=== PATIENT | male | born 1985 | race Hispanic/Latino ===

== ENCOUNTER 2022-07-28 16:13 | Emergency (ER) | payer SELFPAY ==
[~2022-07-28 16:13] MED LIST: Iopamidol-370 76% 500 ML MDV (1 ML CHARGE) ONE
[2022-07-28] MEDS ORDERED: Ondansetron PF 4 MG/2 ML Vial ONE (16:20)
[2022-07-28] MEDS ORDERED: Morphine 4 MG/ML VIAL ONE (16:20)
[2022-07-28 16:37] LABS: #Basophils 0.1 thou/uL (0.0-0.2); #Eosinphils 0.4 thou/uL (0.0-0.7); #Lymphocytes 3.9 thou/uL (1.20-3.40); #Neutrophils 6.8 thou/uL (1.40-6.50); %Basophils 0.8 % (0.0-1.0); %Eosinophils 3.6 % (0.0-10.0); %Lymphocytes 32.2 % (21.0-51.0); %Monocytes 7.9 % (0.0-10.0); %Neutrophils 55.5 % (42.0-75.0); Hemoglobin 15.4 g/dL (14.0-18.0); Mean Corpuscular HGB CONC 34.2 g/dL (32.0-36.0); Mean Corpuscular Hemoglobin 30.1 pg (27.0-31.0); Mean Platelet Volume 8.9 fL (7.4-10.4); Platelet Count 252 10x3/uL (130-400); RBC Distribution Width 12.3 % (11.5-14.5); Red Blood Cell (RBC) Count 5.12 mill/uL (4.70-6.10); White Blood Cell (WBC) Count 12.2 10x3/uL (4.8-10.8)
[2022-07-28 16:49] LABS: INR-International Normal Ratio 0.9; Prothrombin Time 12.5 sec (12.0-14.7)
[2022-07-28 16:50] LABS: PTT 34.2 sec (22.9-36.1)
[2022-07-28 17:56] LABS: Albumin 3.8 g/dL (3.5-5.0)
[2022-07-28 17:57] LABS: Chloride 107 mmol/L (98-107); Potassium 3.6 mmol/L (3.5-5.1); Sodium 136 mmol/L (136-145)
[2022-07-28 17:58] LABS: Calcium 8.3 mg/dL (7.8-10.44); Glucose 79 mg/dL (70-105)
[2022-07-28 17:59] LABS: Globulin 2.4 g/dL (2.4-3.5); Protein, Total 6.2 g/dL (6.0-8.3)
[2022-07-28 18:00] LABS: Anion Gap 12 mmol/L (10-20); Bilirubin, Total 0.3 mg/dL (0.2-1.2); Carbon Dioxide 21 mmol/L (22-29)
[2022-07-28 18:01] LABS: Alcohol Less than 10 mg/dL (Less than 10); Alkaline Phosphatase 71 U/L (40-110)
[2022-07-28 18:02] LABS: Calc. Creatinine Clearance 0 mL/min (70-130); Estimated GFR 95
[2022-07-28 18:03] LABS: AST (SGOT) 32 U/L (5-34); BUN (Urea Nitrogen) 19 mg/dL (8.9-20.6)
[2022-07-28 18:04] LABS: ALT (SGPT) 66 U/L (8-55); Lipase 26 U/L (8-78)
== END 2022-07-28 17:40 | disposition home or self-care (01) ==
LOC: ERS 16:13
DX: M54.50 Low back pain, unspecified (principal); D72.829 Elevated white blood cell count, unspecified
CPT/HCPCS: 36415; 70450; 71045; 71260; 72125; 74177; 80053; 80307; 83690; 85025; 85610; 85730; 96374; 96375; J2270; J2405; Q9967

== ENCOUNTER 2024-05-05 14:23 | Emergency (ER) | payer SELFPAY ==
[2024-05-06] MEDS ORDERED: NOREPINEPHRINE 8 MG/250 ML-D5W 250 ML ONE (07:10)
== END 2024-05-05 16:38 | disposition left against medical advice (07) ==
LOC: ERS 14:23
DX: Z53.21 Procedure and treatment not carried out due to patient leaving prior to being seen by health care provider (principal)